=== PATIENT | female | born 1980 | race Caucasian/White ===

== ENCOUNTER 2019-06-09 13:59 | Day surgery (SDC) | payer MEDICAID ==
[2019-06-09 15:11] LABS: ADD MAN DIFF? NO
[2019-06-09] MEDS ORDERED: LACTATED RINGER'S 1,000 ML IV (15:30)
[2019-06-09] MEDS ORDERED: FENTAnyl 50 MCG/ML VIAL (15:35)
[2019-06-09] MEDS ORDERED: LIDOCAINE 2% (SDV) 5 ML INJ (15:35)
[2019-06-09] MEDS ORDERED: ROCURONIUM 50 MG INJ (15:35)
[2019-06-09] MEDS ORDERED: PROPOFOL 100 ML (15:35)
[2019-06-09 15:48] LABS: BASOPHILS % 0.5 % (0.0-2.0); EOSINOPHILS # 0.3 10^3/ul (0.0-0.5); EOSINOPHILS % 3.1 % (0.0-7.0); HEMATOCRIT 41.8 % (37.0-47.0); HEMOGLOBIN 13.3 g/dl (12.0-16.0); LYMPHOCYTES # 3.2 10^3/ul (0.8-2.9); LYMPHOCYTES % 39.6 % (15.0-51.0); MEAN CORPUSCULAR HEMOGLOBIN 29.4 pg (29.0-33.0); MEAN CORPUSCULAR HGB CONC 31.8 g/dl (32.0-37.0); MEAN CORPUSCULAR VOLUME 92.5 fl (82.0-101.0); MEAN PLATELET VOLUME 9.1 fl (7.4-10.4); MONOCYTE # 0.6 10^3/ul (0.3-0.9); MONOCYTES % 7.5 % (0.0-11.0); NEUTROPHIL # 3.9 10^3/ul (1.6-7.5); NEUTROPHILS % 48.4 % (39.0-77.0); PLATELET COUNT 299 10^3/UL (140-415); RED BLOOD COUNT 4.52 10^6/ul (4.20-5.40); RED CELL DISTRIBUTION WIDTH 12.8 % (11.5-14.5)
[2019-06-09 15:48] LABS: WHITE BLOOD COUNT 8.1 10^3/ul (4.8-10.8)
[2019-06-09 15:56] LABS: INR 1.02; PROTIME 13.5 Sec (11.9-14.9); PT RATIO 1.1
[2019-06-09 15:57] LABS: PARTIAL THROMBOPLASTIN TIME 31.3 Sec (23.0-35.0)
[2019-06-09] MEDS ORDERED: KETOROLAC 30 MG INJ (16:14)
[2019-06-09] MEDS ORDERED: DEXAMETHASONE 4 MG/ML 5 ML INJ (16:21)
[2019-06-09] MEDS ORDERED: ONDANSETRON 4 MG INJ (16:21)
[2019-06-09] MEDS ORDERED: CEFAZOLIN 1 GM INJ (16:27)
[2019-06-09] MEDS: BUPIVACAINE 0.25%/EPI (SDV) 30 ML INJ (17:01)
[2019-06-09] MEDS ORDERED: NEOSTIGMINE 3 MG/3 ML SYRINGE (17:05)
[2019-06-09] MEDS ORDERED: GLYCOPYRROLATE 0.4 MG INJ (17:05)
[2019-06-09] MEDS: FENTAnyl 50 MCG/ML VIAL IV ×2 (17:24→17:41)
[2019-06-09] MEDS ORDERED: ONDANSETRON 4 MG INJ IV (17:30)
[2019-06-09] MEDS ORDERED: KETOROLAC 30 MG INJ IV (17:30)
[2019-06-09] MEDS ORDERED: METOCLOPRAMIDE 10 MG INJ IV (17:30)
[2019-06-09] MEDS ORDERED: hydrALAzine 20 MG INJ IV (17:30)
[2019-06-09] MEDS ORDERED: EPHEDrine 25 MG/5 ML SYG IV (17:30)
[2019-06-09] MEDS ORDERED: ALBUTEROL 0.083% (NEB) 2.5 MG/3 ML AMP HHN (17:30)
[2019-06-09] MEDS ORDERED: HYDROmorphONE 1 MG/5 ML IV SYRINGE IV ×3 (17:30)
[2019-06-09] MEDS ORDERED: MIDAZOLAM 1 MG/ML 2 ML INJ IV (17:30)
[2019-06-09] MEDS ORDERED: FENTAnyl 50 MCG/ML VIAL IV ×2 (17:30)
[2019-06-09] MEDS ORDERED: MEPERIDINE 25 MG INJ IV (17:30)
[2019-06-09] MEDS ORDERED: LABETALOL HCL 20MG INJ IV (17:30)
[2019-06-09] MEDS: ACETAMINOPHEN 500 MG TAB PO (17:32)
[2019-06-09] MEDS: DOXYCYCLINE 100 MG TAB PO (17:32)
[2019-06-09] MEDS: BUTORPHANOL 2 MG INJ IM (17:36)
[2019-06-09] MEDS: KETOROLAC 60 MG INJ IM (17:37)
[2019-06-09] MEDS: KETOROLAC 30 MG INJ IM (17:43)
[2019-06-09] MEDS: DIPHENHYDRAMINE 50 MG INJ IV (18:29)
== END 2019-06-09 18:50 | disposition home or self-care (01) ==
LOC: SDS 13:59
DX: Z30.2 Encounter for sterilization (principal)
CPT/HCPCS: 58670; 84702; 85025; 85610; 85730